=== PATIENT | female | born 1990 | race Caucasian/White ===

== ENCOUNTER → 2019-09-04 | Outpatient (CLI) | payer SELFPAY ==
[2019-09-04 11:23] LABS: EOSINOPHILS % (AUTO) 1 % (0-10); HEMATOCRIT 36 % (35-52); HEMOGLOBIN 12.1 G/DL (11.5-16.0); LYMPHOCYTES % (AUTO) 23 % (12-44); MEAN CORPUSCULAR HEMOGLOBIN 31 PG (25-34); MEAN CORPUSCULAR HGB CONC 34 G/DL (32-36); MEAN CORPUSCULAR VOLUME 93 FL (80-99); MEAN PLATELET VOLUME 9.8 FL (7.4-10.4); MONOCYTES % (AUTO) 10 % (0-12); NEUTROPHILS % (AUTO) 66 % (42-75); PLATELET COUNT 203 10^3/uL (130-400); RED CELL DISTRIBUTION WIDTH 12.7 % (10.0-14.5); WHITE BLOOD COUNT 8.2 10^3/uL (4.3-11.0)
[2019-09-04 11:24] LABS: BASOPHILS % (AUTO) 0 % (0-10); EOSINOPHILS # (AUTO) 0.1 10^3/uL (0.0-0.3); LYMPHOCYTES # (AUTO) 1.9 X 10^3 (1.0-4.0); MONOCYTES # (AUTO) 0.8 X 10^3 (0.0-1.0); NEUTROPHILS # (AUTO) 5.4 X 10^3 (1.8-7.8)
== END ==
LOC: LAB FS 10:17
PROVIDERS: ATTEND Family Medicine
DX: Z34.80 Encounter for supervision of other normal pregnancy, unspecified trimester (principal)
CPT/HCPCS: 36415; 80055; 82950; 86703; 87088

== ENCOUNTER → 2019-11-05 | Outpatient (CLI) | payer SELFPAY | LOC: LABNPT 15:51 | PROVIDERS: ATTEND Family Medicine | DX: Z34.90 Encounter for supervision of normal pregnancy, unspecified, unspecified trimester (principal) | CPT/HCPCS: 87081 ==

== ENCOUNTER 2019-11-15 13:22 | Inpatient (IN) | payer SELFPAY ==
[2019-11-15] VITALS (44 sets, daily range): BP systolic 123–166; BP diastolic 69–94
[~2019-11-15] VITALS: Ht 157.5 cm; Wt 64.0 kg
--- NOTE | 2019-11-15 13:13 | NUR ---
MEDHAT SOTOMAYOR presented to unit via ambulation from ED, accompanied by S.O., for INDUCTION. MEDHAT SOTOMAYOR weighed, gowned, voided, and to bed. EFHM and TOCO applied, VS taken. MEDHAT SOTOMAYOR oriented to bed controls, call light, TV, heat, and A/C controls.
[2019-11-15] MEDS ORDERED: D5 LR IV SOLUTION 1,000 ML IV SCH (14:21)
[2019-11-15] MEDS ORDERED: MINERAL OIL CONCENTRATE 99.9% 15 ML UDC TOP PRN (14:30)
--- NOTE | 2019-11-15 14:31 | NUR ---
Dr. Conte called and notified of pt arrival. Orders rec'd to check cervix and start pitocin. Dr. sarmiento unit is busy, and for pt safety, it might be a bit before induction process is started. Dr. oliver.
[2019-11-15 15:17] LABS: BASOPHILS % (AUTO) 0 % (0-10); EOSINOPHILS % (AUTO) 0 % (0-10); HEMATOCRIT 39 % (35-52); HEMOGLOBIN 13.5 G/DL (11.5-16.0); LYMPHOCYTES # (AUTO) 1.8 X 10^3 (1.0-4.0); LYMPHOCYTES % (AUTO) 14 % (12-44); MEAN CORPUSCULAR HEMOGLOBIN 31 PG (25-34); MEAN CORPUSCULAR HGB CONC 34 G/DL (32-36); MEAN CORPUSCULAR VOLUME 90 FL (80-99); MEAN PLATELET VOLUME 10.7 FL (7.4-10.4); MONOCYTES # (AUTO) 1.2 X 10^3 (0.0-1.0); MONOCYTES % (AUTO) 9 % (0-12); NEUTROPHILS # (AUTO) 10.1 X 10^3 (1.8-7.8); NEUTROPHILS % (AUTO) 77 % (42-75); PLATELET COUNT 117 10^3/uL (130-400); RED CELL DISTRIBUTION WIDTH 12.4 % (10.0-14.5); WHITE BLOOD COUNT 13.2 10^3/uL (4.3-11.0)
[2019-11-15] MEDS ORDERED: OXYTOCIN PRE-MIX DRIP 500 ML IV ONE (15:19)
[2019-11-15] MEDS ORDERED: OXYTOCIN PRE-MIX DRIP 500 ML IV SCH (15:27)
--- OUTSIDE RECORDS SUMMARY | 2019-11-15 15:39 | XMS REPORT | Continuity of Care Document ---
Author Organization Unknown Address Unknown Phone Unavailable Allergies There is no data. Medications There is no data. Problems Date Dx Coded Attending Type Code Diagnosis Diagnosed By 09/05/2019 RIKI SOTELO MD Ot Z34.80 ENCOUNTER FOR SUPRVSN OF NORMAL PREGNANC 11/07/2019 RIKI SOTELO MD Ot Z34.90 ENCNTR FOR SUPRVSN OF NORMAL , 11/13/2019 RIKI SOTELO MD Ot Z34.90 ENCNTR FOR SUPRVSN OF NORMAL , Procedures There is no data. Results Test Result Range Streptococcus agalactiae detection by or ganism specific culture - 11/05/19 15:52 QUANTITY OF GROWTH . NRG Streptococcus agalactiae detection by organism specifi c culture [id number] NRG Encounters ACCT No. Visit Date/Time Discharge Status Pt. Type Provider Facility Loc./Unit Complaint [id number] 04/27/2019 10:10:00 04/27/2019 23:59: 59 CLS Outpatient JEISON COREA [facility] [id number] 11/05/2019 15:51:00 020 23:59:59 CLS Outpatient RIKI SOTELO MD [facility] LABNPT [id number] 09/04/2019 10:17:00 020 23:59:59 CLS Outpatient RIKI SOTELO MD [facility] LAB FS SUPERVISION OF OTHER NO RMAL , ANTEPARTUM
--- NOTE | 2019-11-15 16:31 | NUR ---
called to check on pt's status. update given. no new orders received.
[2019-11-15] MEDS ORDERED: ONDANSETRON 4 MG/2 ML (SDV) Z0FRAN ONE (17:42)
[2019-11-15] MEDS ORDERED: ONDANSETRON 4 MG/2 ML (SDV) Z0FRAN IVP PRN (17:45)
[2019-11-15] MEDS ORDERED: PANTOPRAZOLE 40 MG (PROTONIX) VIAL IV ONE (17:45)
[2019-11-15] MEDS ORDERED: LACTATED RINGERS 1,000 ML IV ONE ×2 (18:59→20:03)
--- NOTE | 2019-11-15 19:00 | NUR ---
1 liter LR bolus infusing prior to epidural placement. pt requesting epidural placement for pain management
[2019-11-15] MEDS ORDERED: fentaNYL 2 mcg/ml BUPIVA 0.125 100 ML ONE (19:15)
--- NOTE | 2019-11-15 19:25 | History & Physical-OB ---
OB - Chief Complaint & HPI Date/Time Date of Admission: Date of Admission: Nov 15, 2019 at 13:22 Date seen by a Provider: Nov 15, 2019 Time Seen by a Provider: 18:00 Chief Complaint/History OB-Reason for Admission/Chief: advanced dilation Hx : 4 Hx Para: 3 Gestational Age in Weeks: 38 Gestational Age in Days: 0 Indication for induction: other (advamced do;atopm) Admission Nurse Assessment Rev: Yes Allergies and Home Medications Allergies Coded Allergies: No Known Drug Allergies (Unverified , 11/15/19) Patient Home Medication List Home Medication List Reviewed: Yes OB - History Hx of Present Ultrasounds: Normal mid trimester US Obstetrical Complications: None Medical Complications: None Patient Past Medical History previously healthy Social History/Family History Recent Infectious Disease Expo: No Alcohol Use: Denies Use Recreational Drug Use: No OB - Admission Exam Physical Exam Vitals: Vital Signs 11/15/19 11/15/19 11/15/19 14:00 17:30 18:00 Temp 36.8 Pulse 53 Resp 18 B/P (MAP) 143/83 (103) Pulse Ox 99 O2 Delivery Room Air HEENT: NCAT Heart: Rhythm Normal Lungs: Clear Abdomen: Gravid Extremities: Normal Reflexes: Normal Cervical Dilatation: 5cm Station: -3 Membranes: Intact Heart Rate: 130's Accelerations: Accelerations Present Decelerations: No Decelerations Short Term Variability: Present Manager Nursing Home Variability: Average (6-25) Contractions on Admission: < 5 Minutes Apart Labs Laboratory Tests Test 11/15/19 14:55 Range/Units White Blood Count 13.2 H 4.3-11.0 10^3/uL Red Blood Count 4.37 4.35-5.85 10^6/uL Hemoglobin 13.5 11.5-16.0 G/DL Hematocrit 39 35-52 % Mean Corpuscular Volume 90 80-99 FL Mean Corpuscular Hemoglobin 31 25-34 PG Mean Corpuscular Hemoglobin Concent 34 32-36 G/DL Red Cell Distribution Width 12.4 10.0-14.5 % Platelet Count 117 L 130-400 10^3/uL Mean Platelet Volume 10.7 H 7.4-10.4 FL Neutrophils (%) (Auto) 77 H 42-75 % Lymphocytes (%) (Auto) 14 12-44 % Monocytes (%) (Auto) 9 0-12 % Eosinophils (%) (Auto) 0 0-10 % Basophils (%) (Auto) 0 0-10 % Neutrophils # (Auto) 10.1 H 1.8-7.8 X 10^3 Lymphocytes # (Auto) 1.8 1.0-4.0 X 10^3 Monocytes # (Auto) 1.2 H 0.0-1.0 X 10^3 Eosinophils # (Auto) 0.0 0.0-0.3 10^3/uL Basophils # (Auto) 0.0 0.0-0.1 10^3/uL OB - Assessment/Plan/Diagnosis Assessment Assessment: active labor Admission Dx Normal labor at 38 0/7 wga. Admission Status: Inpatient Order (span 2 midnights) Reason for Inpatient Admission: Labor Plan Induction Method: AROM Other Plan AROM shows clear fluid. Epidural per patient request. GBS negative. Pitocin. RIKI SOTELO MD Nov 15, 2019 19:25
[2019-11-15] MEDS ORDERED: WITCH HAZEL(TUCKS) 40 EA JAR TOP PRN (19:30)
[2019-11-15] MEDS ORDERED: MEASLES,MUMPS,RUBELLA 1 EA INJ SQ ONE (19:30)
[2019-11-15] MEDS ORDERED: BENZOCAINE/MENTHOL (DERMOPLAST) 60 ML CAN TP PRN (19:30)
[2019-11-15] MEDS ORDERED: TETANUS,DIPTH,PERTUSS P/F (BOOSTRIX) 0.5 ML VIAL IM ONE (19:30)
[2019-11-15] MEDS ORDERED: BUPIVACAINE 0.25% 30 ML (SENSORCAINE) VIAL ONE (19:36)
[2019-11-15] MEDS ORDERED: fentaNYL INJECTION 100 MCG/2 ML AMP ONE (19:36)
[2019-11-15] MEDS ORDERED: fentaNYL 2 mcg/ml BUPIVA 0.125 100 ML IV SCH (20:03)
[2019-11-15] MEDS ORDERED: EPIDURAL (fentaNYL 2 MCG/ML BUPIVA 0.125%)100 ML BAG EPI SCH (20:15)
[2019-11-15] MEDS ORDERED: CATHETER FLUSH 10 ML SYR IV PRN (20:15)
[2019-11-15] MEDS ORDERED: NALOXONE 0.4 MG/ML 1 ML (NARCAN) VIAL IV PRN (20:15)
--- NOTE | 2019-11-15 20:20 | NUR ---
2024: Pt up in stirrups for repair. 2029: Repair complete. Pt. cleaned up and out of stirrups. Fundus firm and one under umbilicus. Minimal bleeding noted. No clots expressed. 2044: Fundus firm and one under umbilicus. Minimal bleeding noted. No clots expressed. 2099: Fundus firm and one under umbilicus. Minimal bleeding noted. No clots expressed. 2114: Pt. called out to desk. States that her stomach is hurting and that she has a very bad headache. Pt is laid back at this time and lights turned down. Fundus massaged. Fundus firm and one under umbilicus. Minimal bleeding noted. No clots expressed. 2129: Orders received from anesthesia. Fundus massaged. Fundus firm and one under umbilicus. Minimal bleeding noted. No clots expressed. 2144: Fundus massaged. Fundus firm and one under umbilicus. Minimal bleeding noted. No clots expressed.
--- NOTE | 2019-11-15 20:39 | OB Labor & Delivery Record ---
Vag Delivery Note Vag Delivery Note Date of Delivery: 11/15/19 Preoperative Diagnosis: Brandi Cain is a (28 /Para 4 / 3,Gestational Age (wks)38with [0 days] Postoperative Diagnosis: Same Surgeon: RIKI SOTELO Automobile Carpets Molder: [none] Anesthesia: [epidural] Delivery Type: [] Findings: [] Viable [male] , apgars [9/9] Lacerations: Intact placenta with 3 vessel cord. Loose true knot in the cord. Estimated Blood Loss: [200] ml Complications: None Condition: Stable Description of Procedure: The patient is a 28 year old female who presented [in labor]. She was admitted a nd informed consent was obtained. Her labor course was remarkable for [nothing] She progressed to complete dilatation and began to push. She was then set up for delivery. The infant's head was delivered atraumatically in the [OA] position. The shoulders and remainder of the infant's body were then delivered without difficulty. Upon delivery, the head was held below the level of the perineum and the mouth and nares were bulb suctioned. The cord was doubly clamped and cut after 60 seconds on maternal abdomen by father of the . An intact placenta with 3-vessel cord delivered via Neal and there was found to be minimal bleeding.~ Vigorous fundal massage was performed and the fundus was found to be firm. IV oxytocin was given. Examination of the vagina and perineum revealed a [2nd degree perineal] laceration repaired in the usual fashion with 3-0 vicryl suture. Following the repair, sponge, instrument and needle counts were correct. Mom and baby were both in stable condition in the labor suite. Vitals - Labs Vital Signs - I&O Vital Signs Date Time Temp Pulse Resp B/P (MAP) Pulse Ox O2 Delivery O2 Flow Rate FiO2 11/15/19 19:00 52 18 136/75 (95) Room Air 11/15/19 18:45 42 18 152/85 (107) Room Air 11/15/19 18:30 48 18 157/87 (110) Room Air 11/15/19 18:15 42 18 160/76 (104) Room Air 11/15/19 18:00 53 18 143/83 (103) Room Air 11/15/19 17:45 52 18 163/82 (109) Room Air 11/15/19 17:30 45 18 164/82 (109) 99 Room Air 11/15/19 17:15 45 18 164/82 (109) 99 Room Air 11/15/19 17:00 49 18 160/94 (116) Room Air 11/15/19 16:45 46 18 166/79 (108) Room Air 11/15/19 16:30 47 18 151/85 (107) Room Air 11/15/19 16:15 18 Room Air 11/15/19 16:00 47 18 160/78 (105) Room Air 11/15/19 15:45 44 18 142/79 (100) Room Air 11/15/19 15:30 46 18 139/74 (95) Room Air 11/15/19 14:00 36.8 54 18 97 Room Air Labs Laboratory Tests 11/15/19 14:55: White Blood Count 13.2H, Red Blood Count 4.37, Hemoglobin 13.5, Hematocrit 39, Mean Corpuscular Volume 90, Mean Corpuscular Hemoglobin 31, Mean Corpuscular He moglobin Concent 34, Red Cell Distribution Width 12.4, Platelet Count 117L, Mean Platelet Volume 10.7H, Neutrophils (%) (Auto) 77H, Lymphocytes (%) (Auto) 14, Monocytes (%) (Auto) 9, Eosinophils (%) (Auto) 0, Basophils (%) (Auto) 0, Neutrophils # (Auto) 10.1H, Lymphocytes # (Auto) 1.8, Monocytes # (Auto) 1.2H, Eosinophils # (Auto) 0.0, Basophils # (Auto) 0.0 RIKI SOTELO MD Nov 15, 2019 20:39
[2019-11-15] MEDS: OXYTOCIN PRE-MIX DRIP 500 ML IV SCH ×2 (21:06→21:21)
[2019-11-15] MEDS ORDERED: SUCRALFATE 1 GM (CARAFATE) TAB PO ONE (21:15)
[2019-11-15] MEDS: IBUPROFEN 600 MG (MOTRIN) TAB PO SCH (21:20)
[2019-11-15] MEDS ORDERED: SUCRALFATE 1 GM (CARAFATE) TAB ONE (21:27)
--- NOTE | 2019-11-15 21:29 | NUR ---
Anesthesia called about pt headache. Anesthesia states that it is too early to evaluate anything at this point and to treat symptoms. Leave pt flat as much as possible.
--- NOTE | 2019-11-15 21:30 | NUR ---
Epidural cath removed. Tip intact.
[2019-11-15] MEDS ORDERED: HYDROmorphone 2 MG/ML VIAL (DILAUDID) IV ONE (21:45)
[2019-11-15] MEDS ORDERED: CATHETER FLUSH 10 ML SYR IV SCH ×2 (22:00)
--- NOTE | 2019-11-15 22:10 | NUR ---
Pt. is resting comfortably. Remains alert and oriented. States that her pain in both her head and stomach are getting better.
--- NOTE | 2019-11-15 22:54 | NUR ---
Pt. is sleeping soundly at this time.
[2019-11-15] MEDS: DOCUSATE SODIUM 100 MG (COLACE) CAP PO SCH (23:14)
[2019-11-15] MEDS: ACETAMINOPHEN 500 MG TAB (TYLENOL) PO SCH (23:14)
--- NOTE | 2019-11-16 00:10 | NUR ---
Nurse at pt bedside to assist with getting pt up to restroom. Fundus massaged at this time. Fundus 1 under umbilicus. Slightly boggy, but firmed with massage. Baseball size clot expressed. Nurse continue to massage fundus until bleeding was minimal. Pt. states at this time that she emptied her bladder in the bed. Pericare provided for the pt. Pad and underwear put on. Pt. transferred to the bathroom, but unable to void after voiding in bed. Gown changed. Pt. to wheelchair and transferred to room at this time. Pt. tolerated getting up to the bathroom well.
[2019-11-16 03:21] VITALS: BP 108/66
[2019-11-16] MEDS: IBUPROFEN 600 MG (MOTRIN) TAB PO SCH ×4 (03:22→21:33)
--- NOTE | 2019-11-16 05:06 | NUR ---
Dr. Conte called and informed of pt bleeding status. Informed that pt has been soaking through a pad an hour and has been regularly expelling clots with fundal massage. Informed that fundus is firm and one under umbilicus. Informed that pads from the last three hours had been weighed and added up to 360mls of blood loss. ordered 800 of cytotec to be given rectally at this time.
[2019-11-16] MEDS ORDERED: MISOPROSTOL 200 MCG (CYTOTEC) TABLET PR ONE (05:15)
[2019-11-16 06:46] LABS: BASOPHILS % (AUTO) 0 % (0-10); EOSINOPHILS % (AUTO) 0 % (0-10); HEMATOCRIT 34 % (35-52); HEMOGLOBIN 11.9 G/DL (11.5-16.0); LYMPHOCYTES # (AUTO) 2.5 X 10^3 (1.0-4.0); LYMPHOCYTES % (AUTO) 17 % (12-44); MEAN CORPUSCULAR HEMOGLOBIN 31 PG (25-34); MEAN CORPUSCULAR HGB CONC 35 G/DL (32-36); MEAN CORPUSCULAR VOLUME 90 FL (80-99); MONOCYTES % (AUTO) 7 % (0-12); NEUTROPHILS # (AUTO) 10.6 X 10^3 (1.8-7.8); NEUTROPHILS % (AUTO) 75 % (42-75); PLATELET COUNT 61 10^3/uL (130-400); RED CELL DISTRIBUTION WIDTH 12.4 % (10.0-14.5); WHITE BLOOD COUNT 14.1 10^3/uL (4.3-11.0)
--- NOTE | 2019-11-16 07:46 | NUR ---
DR. SOTELO HERE TO SEE PT.
[2019-11-16] MEDS: SUCRALFATE 1 GM (CARAFATE) TAB PO SCH ×3 (07:48→17:21)
[2019-11-16 08:00] VITALS: BP 129/81
--- NOTE | 2019-11-16 08:00 | NUR ---
VSS. ASSESSMENT COMPLETED. ASSISTED UP TO THE BATHROOM. LARGE GUSH OF BLOOD ON PAD AND SMALLER AMOUNT IN TOILET. WEIGHTED PAD AT 80 MLS. PASSED A 3 CM CLOT IN TOILET. GOWN CHANGED AND LWPBPY1CM PT WITH PERICARE AND PAD/UNDERWEAR CHANGE. AMBULATES WITHOUT DIFFICULTY. DENIES DIZZINESS. SET UP SHOWER. BACK TO BED WITHOUT PROBLEMS. FF U/2. VAG FLOW LT/MOD RUBRA. SPOUSE AT BEDSIDE.
[2019-11-16 08:24] LABS: ALBUMIN 2.5 GM/DL (3.2-4.5)
[2019-11-16] MEDS: ACETAMINOPHEN 500 MG TAB (TYLENOL) PO SCH ×2 (08:24→16:40)
[2019-11-16] MEDS: DOCUSATE SODIUM 100 MG (COLACE) CAP PO SCH ×2 (08:24→21:33)
[2019-11-16 08:25] LABS: CHLORIDE 106 MMOL/L (98-107); POTASSIUM 4.4 MMOL/L (3.6-5.0); SODIUM 135 MMOL/L (135-145)
[2019-11-16 08:26] LABS: CALCIUM 7.6 MG/DL (8.5-10.1)
[2019-11-16 08:27] LABS: GLUCOSE 82 MG/DL (70-105); TOTAL PROTEIN 4.7 GM/DL (6.4-8.2)
[2019-11-16 08:28] LABS: CARBON DIOXIDE 23 MMOL/L (21-32)
[2019-11-16 08:29] LABS: BILIRUBIN,TOTAL 0.7 MG/DL (0.1-1.0)
[2019-11-16 08:30] LABS: ALKALINE PHOSPHATASE 97 U/L (40-136); PROTHROMBIN TIME PATIENT 13.8 SEC (12.2-14.7)
[2019-11-16 08:31] LABS: CREATININE SERUM 0.74 MG/DL (0.60-1.30); GFR ESTIMATED > 60
[2019-11-16 08:32] LABS: BUN/CREATININE RATIO 19
[2019-11-16 08:33] LABS: ALANINE AMINOTRANSFERASE 247 U/L (0-55)
--- NOTE | 2019-11-16 09:06 | NUR ---
PARENTS TO NURSERY TO SEE .
--- NOTE | 2019-11-16 10:00 | NUR ---
RETURNED TO ROOM FORM NURSERY.
--- NOTE | 2019-11-16 12:00 | NUR ---
GALLBLADDER SONO BEING PERFORMED AT BEDSIDE.
[2019-11-16 12:45] VITALS: BP 117/77
--- NOTE | 2019-11-16 12:45 | NUR ---
DECISION BY DR. FORBES TO TRANSFER INFANT.
--- NOTE | 2019-11-16 14:10 | NUR ---
INFANT TRANSFERRED TO [facility].
--- NOTE | 2019-11-16 14:15 | NUR ---
EATING STORK MEAL.
--- NOTE | 2019-11-16 14:30 | Anesthesia-Regional Post-Op ---
Regional Patient Condition Mental Status: Alert, Oriented x3 Circulation: Same as Pre-Op Headache: Absent Sensation: Full Recovery Motor Block: Absent Post Op Complications Complications None Follow Up Care/Instructions Patient Instructions None needed. Anesthesia/Patient Condition Patient is doing well, no complaints, stable vital signs, no apparent adverse anesthesia problems. AYLEEN GARZA DO Nov 16, 2019 14:30
--- NOTE | 2019-11-16 14:31 | Diagnostic Imaging Report ---
PROCEDURE: US Abdomen, limited. TECHNIQUE: Multiple realtime grayscale images were obtained over the abdomen in various projections. INDICATION: Elevated liver enzymes. The liver is normal in size at 16 cm. The portal vein is patent and shows normal direction of flow. No discrete liver mass is detected. Trace fluid is noted around the liver. Gallbladder wall is slightly thickened and there is some pericholecystic fluid but no definite gallstones or sludge are identified. No biliary duct dilatation is seen. The pancreas is unremarkable. Aorta is nonaneurysmal. IVC is patent. Right kidney does appear to be isoechoic to the liver, suspicious for medical renal disease. No calculi or hydronephrosis is seen. IMPRESSION: Trace right upper quadrant ascites. There is a gallbladder wall thickening which can be seen with ascites as well. No definite gallstones or or gallbladder sludge is identified. Questionable medical renal disease. No hydronephrosis is detected. Dictated by: Dictated on workstation # [id number]
--- NOTE | 2019-11-16 14:40 | NUR ---
SPOUSE LEFT TO GO TO [place] TO BE WITH INFANT.
--- NOTE | 2019-11-16 15:50 | NUR ---
DR. SOTELO CALLED TO CHECK ON PT. WILL REPEAT LABS IN THE A.M.
--- NOTE | 2019-11-16 15:57 | Progress Note ---
Subjective Subjective/Events-last exam Patient had increased bleeding overnight and recieved rectal cytotec. Her bleeding has slowed. Increased chest pain yesterday resolved with carafate. Infant in the nursery with PVC's and desaturations. Objective Exam Last Set of Vital Signs Vital Signs Date Time Temp Pulse Resp B/P (MAP) Pulse Ox O2 Delivery O2 Flow Rate FiO2 11/16/19 12:45 36.9 59 18 117/77 (90) 97 Room Air Capillary Refill : Less Than 3 Seconds I&O Intake and Output 11/16/19 00:00 Intake Total 2000 ml Balance 2000 ml Intake IV Total 2000 ml Daily Weight Change No General: Alert, Oriented X3 HEENT: Atraumatic Neck: Supple Lungs: Clear to Auscultation Heart: Regular Rate Abdomen: Normal Bowel Sounds, Other (fundus firm) Extremities: No Edema Neuro: Normal Gait, Normal Speech Psych/Mental Status: Mental Status NL Results/Procedures Lab Laboratory Tests 11/16/19 06:32: White Blood Count 14.1H, Red Blood Count 3.79L, Hemoglobin 11.9, Hematocrit 34L, Mean Corpuscular Volume 90, Mean Corpuscular Hemoglobin 31, Mean Corpuscular Hemoglobin Concent 35, Red Cell Distribution Width 12.4, Platelet Count 61L, Mean Platelet Volume 10.0, Neutrophils (%) (Auto) 75, Lymphocytes (%) (Auto) 17, Monocytes (%) (Auto) 7, Eosinophils (%) (Auto) 0, Basophils (%) (Auto) 0, Neutrophils # (Auto) 10.6H, Lymphocytes # (Auto) 2.5, Monocytes # (Auto) 1.0, Eosinophils # (Auto) 0.0, Basophils # (Auto) 0.0, Prothrombin Time 13.8, INR Co mment 1.0, Sodium Level 135, Potassium Level 4.4, Chloride Level 106, Carbon Dioxide Level 23, Anion Gap 6, Blood Urea Nitrogen 14, Creatinine 0.74, Estimat Glomerular Filtration Rate > 60, BUN/Creatinine Ratio 19, Glucose Level 82, Calcium Level 7.6L, Corrected Calcium 8.8, Total Bilirubin 0.7, Aspartate Amino Transf (AST/SGOT) 312H, Alanine Aminotransferase (ALT/SGPT) 247H, Alkaline Phosphatase 97, Total Protein 4.7L, Albumin 2.5L Assessment/Plan Assessment/Plan Admission Dx vaginal delivery at 38 weeks. Elevated liver enzymes and thrombocytopenia. Admission Status: Inpatient Order (span 2 midnights) (1) care following vaginal delivery Assessment & Plan: Improved bleeding with cytotec. Hemoglobin stable and bleeding slowed. (2) Elevated liver enzymes Assessment & Plan: Will get ultrasound of liver. Pain resolved with carafate. will continue QAC and QHS. Acute hepatitis panel pending. (3) Thrombocytopenia Assessment & Plan: Bleeding stable. Will recheck in AM. Clinical Quality Measures DVT/VTE Risk/Contraindication: Risk Factor Score Per Nursin RFS Level Per Nursing on Admit: 1=Low/No VTE PPX RIKI SOTELO MD Nov 16, 2019 15:57
--- NOTE | 2019-11-16 15:58 | Discharge Summary ---
Discharge Inst-[facility] Reconcile Patient Problems Problems Reviewed?: Yes Follow Up/Instructions Goal/Follow Up: [address] Conte Activity Activity: Activity as Tolerated Driving Instructions: You May Drive NO SMOKING: NO SMOKING Nothing Inside Vagina: No Douching, No Mitchell, No Tampons Diet Discharge Diet: No Restrictions, Avoid Fatty Foods Symptoms to Report to : Fever Over 101 Degrees F, Pain/Pressure in Chest, Cough Up/Vomit Blood, Vaginal Bleeding Increase, Vaginal Discharge RIKI Barney MD Nov 16, 2019 15:58
[2019-11-16 16:30] VITALS: BP 121/73
--- NOTE | 2019-11-16 16:30 | NUR ---
VSS. WAITING TO TALK TO S.O. REGARDING INFANT.
[2019-11-16] MEDS: PANTOPRAZOLE 40 MG (PROTONIX) TAB PO SCH (16:42)
--- NOTE | 2019-11-16 18:20 | NUR ---
ASSISTED TOO GET IN SHOWER. VAGINAL BLEEDING HAS BEEN LIGHT SINCE THIS A.M.
[2019-11-16 21:25] LABS: HEPATITIS C ANTIBODY C Non-Reactive (Non-Reactive)
[2019-11-16 21:33] VITALS: BP 158/89
[2019-11-16 22:05] VITALS: BP 138/80
[2019-11-17] MEDS: ACETAMINOPHEN 500 MG TAB (TYLENOL) PO SCH (00:57)
[2019-11-17] MEDS: IBUPROFEN 600 MG (MOTRIN) TAB PO SCH ×2 (03:41→09:04)
[2019-11-17 03:45] VITALS: BP 126/83
[2019-11-17 05:11] LABS: BASOPHILS % (AUTO) 0 % (0-10); EOSINOPHILS # (AUTO) 0.1 10^3/uL (0.0-0.3); EOSINOPHILS % (AUTO) 1 % (0-10); HEMATOCRIT 32 % (35-52); HEMOGLOBIN 10.9 G/DL (11.5-16.0); LYMPHOCYTES # (AUTO) 2.7 X 10^3 (1.0-4.0); LYMPHOCYTES % (AUTO) 26 % (12-44); MEAN CORPUSCULAR HEMOGLOBIN 31 PG (25-34); MEAN CORPUSCULAR HGB CONC 34 G/DL (32-36); MEAN CORPUSCULAR VOLUME 91 FL (80-99); MONOCYTES # (AUTO) 0.7 X 10^3 (0.0-1.0); MONOCYTES % (AUTO) 7 % (0-12); NEUTROPHILS # (AUTO) 6.5 X 10^3 (1.8-7.8); NEUTROPHILS % (AUTO) 65 % (42-75); PLATELET COUNT 63 10^3/uL (130-400); RED CELL DISTRIBUTION WIDTH 12.9 % (10.0-14.5); WHITE BLOOD COUNT 10.1 10^3/uL (4.3-11.0)
[2019-11-17 05:22] LABS: ALBUMIN 2.6 GM/DL (3.2-4.5); CHLORIDE 108 MMOL/L (98-107); POTASSIUM 4.3 MMOL/L (3.6-5.0); SODIUM 139 MMOL/L (135-145)
[2019-11-17 05:23] LABS: CALCIUM 8.1 MG/DL (8.5-10.1)
[2019-11-17 05:24] LABS: GLUCOSE 71 MG/DL (70-105)
[2019-11-17 05:25] LABS: TOTAL PROTEIN 5.1 GM/DL (6.4-8.2)
[2019-11-17 05:26] LABS: BILIRUBIN,TOTAL 0.4 MG/DL (0.1-1.0); CARBON DIOXIDE 24 MMOL/L (21-32)
[2019-11-17 05:28] LABS: ALKALINE PHOSPHATASE 83 U/L (40-136); CREATININE SERUM 0.69 MG/DL (0.60-1.30); GFR ESTIMATED > 60
[2019-11-17 05:29] LABS: BUN/CREATININE RATIO 17
[2019-11-17 05:31] LABS: ALANINE AMINOTRANSFERASE 164 U/L (0-55)
[2019-11-17] MEDS: SUCRALFATE 1 GM (CARAFATE) TAB PO SCH (06:53)
[2019-11-17 09:00] VITALS: BP 111/74
[2019-11-17] MEDS: DOCUSATE SODIUM 100 MG (COLACE) CAP PO SCH (09:03)
[2019-11-17] MEDS: PANTOPRAZOLE 40 MG (PROTONIX) TAB PO SCH (09:04)
[2019-11-17] MEDS ORDERED: IBUP-844 PO (09:51)
[2019-11-17] MEDS ORDERED: DCS100C PO (09:51)
[2019-11-17] MEDS ORDERED: ACET-93 PO (09:51)
--- NOTE | 2019-11-17 10:09 | Discharge Summary ---
Diagnosis/Chief Complaint Date of Admission Nov 15, 2019 at 13:22 Date of Discharge November 17, 2019 Discharge Date: Nov 17, 2019 Discharge Time: 10:00 Admission Diagnosis Admission Diagnosis Intrauterine at 38 weeks Discharge Diagnosis Intrauterine at 38 weeks--delivered 2. Elevated Liver Enzymes 3. Thrombocytopenia 4. Abdominal Ascites Reason Hospital Visit Onset of labor Discharge Summary Hospital Course Hospital Course Ms. Cain presented to the hospital secondary to the onset of contractions at 38 weeks. Her labor was augmented with Pitocin and AROM. She progressed to complete dilation and was delivered vaginally by Dr. Conte. The was transferred to a NICU. Ms. Cain experienced epigastric pain--an ultrasound and laboratory values were ordered. They demonstrated abdominal ascites, elevated liver enzymes. These values were repeated the next day and the labs were trending downward. Ms. Cain was without complaint. Consequently, we will discharge her to home today. Have her follow up in Dr. Conte's office for repeat lab and ultrasound next week. She will be discharged to home with instructions and prescriptions. Labs Laboratory Tests 11/15/19 14:55: White Blood Count 13.2H, Platelet Count 117L, Mean Platelet Volume 10.7H, Neutrophils (%) (Auto) 77H, Neutrophils # (Auto) 10.1H, Monocytes # (Auto) 1.2H 11/16/19 06:32: White Blood Count 14.1H, Platelet Count 61L, Neutrophils # (Auto) 10.6H, Red Blood Count 3.79L, Hematocrit 34L, Calcium Level 7.6L, Aspartate Amino Transf (AST/SGOT) 312H, Alanine Aminotransferase (ALT/SGPT) 247H, Total Protein 4.7L, Albumin 2.5L 11/17/19 04:59: Platelet Count 63L, Red Blood Count 3.52L, Hematocrit 32L, Calcium Level 8.1L, Aspartate Amino Transf (AST/SGOT) 96H, Alanine Aminotransferase (ALT/SGPT) 164H, Total Protein 5.1L, Albumin 2.6L, Hemoglobin 10.9L, Chloride Level 108H Procedures None. Discharge Physical Examination Allergies: Coded Allergies: No Known Drug Allergies (Unverified , 11/15/19) Vitals & I&Os Vital Signs Date Time Temp Pulse Resp B/P (MAP) Pulse Ox O2 Delivery O2 Flow Rate FiO2 11/17/19 03:45 36.6 68 16 126/83 (10) 97 Room Air General Appearance: Alert, Oriented X3, Cooperative HEENT: Atraumatic Respiratory: Clear to Auscultation, Normal Air Movement Cardiovascular: Regular Rate, No Murmurs Abdominal: Normal Bowel Sounds, Soft, No Tenderness Extremities: No Clubbing, No Cyanosis Skin: No Rashes, No Breakdown Neuro: Normal Gait, Normal Speech Psych/Mental Status: Mental Status NL Discharge Home Medications Reviewed and agree with Discharge Medication list on patient's Discharge Instruction sheet Instructions to Patient/Family Please see electronic discharge instructions given to patient. Clinical Quality Measures DVT/VTE Risk/Contraindication: Risk Factor Score Per Nursin RFS Level Per Nursing on Admit: 1=Low/No VTE PPX MARILIA JOHNSON DO Nov 17, 2019 10:09
--- NOTE | 2019-11-17 12:09 | NUR ---
Discharged to ER exit via wheelchair. Infant remains in NICU at [place]. remains their with son Chandana.
== END 2019-11-17 12:09 | disposition home or self-care (01) | DRG 806 ==
LOC: LDRP 13:22
PROVIDERS: ADMIT Family Medicine; ATTEND Family Medicine
PROC: 10E0XZZ Delivery of Products of Conception, External Approach (ICD-10-PCS; principal; 2019-11-15)
PROC: 0KQM0ZZ Repair Perineum Muscle, Open Approach (ICD-10-PCS; 2019-11-15)
DX: O70.1 Second degree perineal laceration during delivery (principal); R18.8 Other ascites; Z37.0 Single live birth; Z3A.38 38 weeks gestation of pregnancy; O69.2XX0 Labor and delivery complicated by other cord entanglement, with compression, not applicable or unspecified; O90.89 Other complications of the puerperium, not elsewhere classified; O72.3 Postpartum coagulation defects; R74.8 Abnormal levels of other serum enzymes
CPT/HCPCS: 36415; 76705; 80053; 80074; 85025; 85610; 86850; 86900; 86901

== ENCOUNTER → 2021-07-29 | Outpatient (CLI) | payer SELFPAY ==
[~2021-07-29] MED LIST: ACET-93 PO; DOCU-239 PO; IBUP-844 PO
[2021-07-29 10:55] LABS: HEMATOCRIT 34 % (35-52); HEMOGLOBIN 11.9 g/dL (11.5-16.0); MEAN CORPUSCULAR HEMOGLOBIN 32 pg (25-34); MEAN CORPUSCULAR HGB CONC 35 g/dL (32-36); MEAN CORPUSCULAR VOLUME 91 fL (80-99); MEAN PLATELET VOLUME 9.6 fL (9.0-12.2); PLATELET COUNT 200 10^3/uL (130-400); WHITE BLOOD COUNT 10.8 10^3/uL (4.3-11.0)
== END ==
LOC: LAB FS 10:30
PROVIDERS: ATTEND Family Medicine
DX: Z34.92 Encounter for supervision of normal pregnancy, unspecified, second trimester (principal); Z3A.24 24 weeks gestation of pregnancy
CPT/HCPCS: 36415; 85027; 86703; 86762; 86780; 86850; 86900; 86901; 87088; 87340

== ENCOUNTER 2021-11-17 04:20 | Inpatient (IN) | payer SELFPAY ==
[~2021-11-17] VITALS: Ht 160 cm; Wt 66.3 kg
[2021-11-17] VITALS (15 sets, daily range): BP systolic 101–132; BP diastolic 56–76
[2021-11-17 04:52] LABS: BILIRUBIN,URINE NEGATIVE (NEGATIVE); CLARITY,URINE CLEAR; COLOR,URINE YELLOW; GLUCOSE, URINE (UA) NEGATIVE (NEGATIVE); KETONES,URINE NEGATIVE (NEGATIVE); LEUKOCYTE ESTERASE ,URINE NEGATIVE (NEGATIVE); NITRITE,URINE NEGATIVE (NEGATIVE); PH,URINE 6.5 (5-9); PROTEIN,URINE NEGATIVE (NEGATIVE)
[2021-11-17 05:01] LABS: BACTERIA,URINE TRACE /HPF; SQUAMOUS EPITHELIAL CELL,UR 25-50 /HPF
[2021-11-17] MEDS ORDERED: D5 LR IV SOLUTION 1,000 ML IV SCH (08:00)
[2021-11-17 08:03] LABS: BASOPHILS # (AUTO) 0.1 10^3/uL (0.0-0.1); BASOPHILS % (AUTO) 0 % (0-10); EOSINOPHILS # (AUTO) 0.1 10^3/uL (0.0-0.3); EOSINOPHILS % (AUTO) 1 % (0-10); HEMATOCRIT 41 % (35-52); LYMPHOCYTES # (AUTO) 2.4 10^3/uL (1.0-4.0); LYMPHOCYTES % (AUTO) 19 % (12-44); MEAN CORPUSCULAR HEMOGLOBIN 32 pg (25-34); MEAN CORPUSCULAR HGB CONC 34 g/dL (32-36); MEAN CORPUSCULAR VOLUME 92 fL (80-99); MEAN PLATELET VOLUME 10.7 fL (9.0-12.2); MONOCYTES # (AUTO) 1.4 10^3/uL (0.0-1.0); MONOCYTES % (AUTO) 11 % (0-12); NEUTROPHILS # (AUTO) 8.8 10^3/uL (1.8-7.8); NEUTROPHILS % (AUTO) 68 % (42-75); PLATELET COUNT 180 10^3/uL (130-400); WHITE BLOOD COUNT 12.9 10^3/uL (4.3-11.0)
[2021-11-17] MEDS ORDERED: OXYTOCIN PRE-MIX DRIP 500 ML IV ONE (08:17)
[2021-11-17] MEDS ORDERED: LIDOCAINE 1% INJ 20 ML VIAL ONE (08:17)
[2021-11-17] MEDS ORDERED: OXYTOCIN PRE-MIX DRIP 500 ML IV SCH ×2 (08:30→11:30)
[2021-11-17] MEDS ORDERED: LIDOCAINE 1% INJ 20 ML VIAL IJ ONE (10:00)
[2021-11-17] MEDS ORDERED: WITCH HAZEL(TUCKS) 40 EA JAR TOP PRN (11:30)
[2021-11-17] MEDS ORDERED: IBUPROFEN 800 MG (MOTRIN) TAB PO ONE (11:30)
[2021-11-17] MEDS ORDERED: BENZOCAINE/MENTHOL (DERMOPLAST) 56 ML CAN TP PRN (11:30)
[2021-11-17] MEDS: IBUPROFEN 800 MG (MOTRIN) TAB PO SCH ×2 (11:32→18:21)
--- NOTE | 2021-11-17 13:12 | History & Physical ---
History and Physical Date Seen by Provider: Nov 17, 2021 Time Seen by Provider: 08:00 This patient is a 30-year-old 5 para [address] Wass[address]. Calix is unavailable and I am on-call. Patient presented at about 4 AM this morning with complaint of contractions. Her cervix was about 4 to 5 cm dilated. By 730 she now has progressed to 5 cm x 8 o'clock she was 8 cm. GBS culture was negative. Patient denies rupture membranes or bleeding. Patient has had no problems with this . Patient is feeling a strong urge to push Allergies are none Medications are vitamins Medical social and surgical history is are per the antepartum record of Dr. Wasserman HEENT exam is normal Neck is supple no lymphadenopathy no thyromegaly Abdomen is gravid soft nontender nondistended Extremity show no clubbing or cyanosis. There is no Homans' sign. Pelvic exam my arrival showed a cervix completely dilated vertex presentation membranes intact amniotomy was performed with release of clear fluid. Assessment and plan 40+ week gestation and active labor with delivery eminent 40 weeks gestation in active labor Allergies and Home Medications Allergies Coded Allergies: No Known Drug Allergies (Unverified , 11/15/19) Patient Home Medication List Home Medication List Reviewed: No No Active Prescriptions or Reported Meds DAVE FOOTE MD Nov 17, 2021 13:12
[2021-11-17] MEDS ORDERED: CATHETER FLUSH 10 ML SYR IV SCH ×2 (14:00)
[2021-11-17] MEDS ORDERED: oxyCODONE/APAP 5/325MG (PERCOCET 5) TABLET PO PRN (17:30)
[2021-11-17] MEDS: DOCUSATE SODIUM 100 MG (COLACE) CAP PO SCH (20:07)
[2021-11-18 00:13] VITALS: BP 101/58
[2021-11-18] MEDS: IBUPROFEN 800 MG (MOTRIN) TAB PO SCH ×2 (00:13→06:04)
--- NOTE | 2021-11-18 01:10 | OPERATIVE REPORT ---
DATE OF SERVICE: 11/17/2021 DELIVERY NOTE The patient delivered by term spontaneous vaginal delivery a viable male with Apgars of 8 and 9 at 1 and 5 minutes respectively, weight of 7 pounds and 13 ounces, blood gas of 7.18 and a time of 0839. The was bulb suctioned on delivery of the head and again on completion of delivery. Umbilical cord was doubly clamped, the father cut the cord, the baby was passed to mom's abdomen. Cord bloods were obtained. The placenta delivered spontaneously Villegas. It was normal with a 3-vessel cord. The cervix, rectum, vagina and perineum were examined and found intact, except for a first-degree perineal laceration extending through the posterior fourchette. This was repaired under local analgesia using 1% lidocaine with epinephrine, infiltrated into the defect and then closed with a running locked suture of 3-0 Vicryl Rapide in the usual manner to good hemostasis and good reapproximation. The patient tolerated the delivery and the repair well. Sponge and needle counts were correct on completion of delivery and the repair. Blood loss was around 200 mL. The patient remained in the LDR for recovery. The baby remained with the mom. Job ID: [id number] DocumentID: [id number] Dictated Date: 11/17/2021 15:54:10 Car Varnisher Date: 11/18/2021 01:10:27 Dictated By: DAVE FOOTE MD
[2021-11-18 04:33] VITALS: BP 99/53
--- NOTE | 2021-11-18 07:23 | Progress Note ---
Standard Progress Note Progress Notes/Assess & Plan Date Seen by a Provider: Nov 18, 2021 Time Seen by a Provider: 07:22 Progress/Assessment & Plan This patient is without complaint. She is ambulating, voiding, tolerating oral intake well and has good pain control. Vital Signs Date Time Temp Pulse Resp B/P (MAP) Pulse Ox O2 Delivery O2 Flow Rate FiO2 11/18/21 04:33 36.7 61 18 99/53 (68) 97 Room Air 11/18/21 00:13 36.6 65 18 101/58 (72) 96 Room Air 11/17/21 20:07 36.8 66 18 116/58 (77) 97 Room Air 11/17/21 16:28 36.6 54 18 110/69 (83) Room Air 11/17/21 11:30 57 123/76 (92) 11/17/21 11:15 71 122/68 (86) 11/17/21 11:00 53 106/62 (77) 11/17/21 10:50 86 18 119/61 (80) Room Air 11/17/21 09:55 36.2 61 18 113/72 (86) Room Air 11/17/21 09:41 61 18 108/69 (82) Room Air 11/17/21 09:32 36.1 61 18 103/68 (80) Room Air 11/17/21 09:10 72 18 111/58 (75) Room Air 11/17/21 08:55 69 18 112/56 (74) Room Air 11/17/21 08:40 36.2 63 18 132/69 (90) Room Air 11/17/21 08:15 36.5 71 18 115/70 (85) Room Air 11/17/21 07:40 36.6 58 18 101/58 (72) Room Air I & O 11/18/21 07:00 Intake Total 1500 ml Balance 1500 ml Vital Signs Date Time Temp Pulse Resp B/P (MAP) Pulse Ox O2 Delivery O2 Flow Rate FiO2 11/18/21 04:33 36.7 61 18 99/53 (68) 97 Room Air 11/18/21 00:13 36.6 65 18 101/58 (72) 96 Room Air 11/17/21 20:07 36.8 66 18 116/58 (77) 97 Room Air 11/17/21 16:28 36.6 54 18 110/69 (83) Room Air 11/17/21 11:30 57 123/76 (92) 11/17/21 11:15 71 122/68 (86) 11/17/21 11:00 53 106/62 (77) 11/17/21 10:50 86 18 119/61 (80) Room Air 11/17/21 09:55 36.2 61 18 113/72 (86) Room Air 11/17/21 09:41 61 18 108/69 (82) Room Air 11/17/21 09:32 36.1 61 18 103/68 (80) Room Air 11/17/21 09:10 72 18 111/58 (75) Room Air 11/17/21 08:55 69 18 112/56 (74) Room Air 11/17/21 08:40 36.2 63 18 132/69 (90) Room Air 11/17/21 08:15 36.5 71 18 115/70 (85) Room Air 11/17/21 07:40 36.6 58 18 101/58 (72) Room Air I & O 11/18/21 07:00 Intake Total 1500 ml Balance 1500 ml Vital signs are stable. Patient is afebrile. The abdomen is benign. Fundus is firm below the umbilicus and nontender. Extremities show no clubbing cyanosis. There is no Homans' sign. Some pretibial pitting edema that would be normal. Pelvic exam was deferred Assessment and plan day 1 doing well plan is for discharge home today or tomorrow as patient prefers Final Diagnosis 40-week spontaneous vaginal delivery DAVE FOOTE MD Nov 18, 2021 07:23
--- NOTE | 2021-11-18 07:48 | Discharge Inst-Surgical ---
Discharge Inst-Surgical Depart Medication/Instructions New, Converted or Re-Newed RX: Transmitted to Pharmacy Consults/Follow Up Orders & Referrals Follow Up Appt: Call to make follow up appt. for patient in [address] Conte. Activity Per routine post vaginal delivery instructions. Prescriptions for Percocet Motrin and Colace have been sent to patient's pharmacy Diet as tolerated Patient may shower or tub bathe as desired. Activity Activity as Tolerated: No Diet Discharge Diet: No Restrictions DAVE FOOTE MD Nov 18, 2021 07:48
--- NOTE | 2021-11-18 07:49 | Progress Note ---
Standard Progress Note Progress Notes/Assess & Plan Date Seen by a Provider: Nov 18, 2021 Time Seen by a Provider: 07:49 Progress/Assessment & Plan This patient is without complaint. She is ambulating, voiding, tolerating oral intake well and has good pain control. Vital Signs Date Time Temp Pulse Resp B/P (MAP) Pulse Ox O2 Delivery O2 Flow Rate FiO2 11/18/21 04:33 36.7 61 18 99/53 (68) 97 Room Air 11/18/21 00:13 36.6 65 18 101/58 (72) 96 Room Air 11/17/21 20:07 36.8 66 18 116/58 (77) 97 Room Air 11/17/21 16:28 36.6 54 18 110/69 (83) Room Air 11/17/21 11:30 57 123/76 (92) 11/17/21 11:15 71 122/68 (86) 11/17/21 11:00 53 106/62 (77) 11/17/21 10:50 86 18 119/61 (80) Room Air 11/17/21 09:55 36.2 61 18 113/72 (86) Room Air 11/17/21 09:41 61 18 108/69 (82) Room Air 11/17/21 09:32 36.1 61 18 103/68 (80) Room Air 11/17/21 09:10 72 18 111/58 (75) Room Air 11/17/21 08:55 69 18 112/56 (74) Room Air 11/17/21 08:40 36.2 63 18 132/69 (90) Room Air 11/17/21 08:15 36.5 71 18 115/70 (85) Room Air 11/17/21 07:40 36.6 58 18 101/58 (72) Room Air I & O 11/18/21 07:00 Intake Total 1500 ml Balance 1500 ml Vital Signs Date Time Temp Pulse Resp B/P (MAP) Pulse Ox O2 Delivery O2 Flow Rate FiO2 11/18/21 04:33 36.7 61 18 99/53 (68) 97 Room Air 11/18/21 00:13 36.6 65 18 101/58 (72) 96 Room Air 11/17/21 20:07 36.8 66 18 116/58 (77) 97 Room Air 11/17/21 16:28 36.6 54 18 110/69 (83) Room Air 11/17/21 11:30 57 123/76 (92) 11/17/21 11:15 71 122/68 (86) 11/17/21 11:00 53 106/62 (77) 11/17/21 10:50 86 18 119/61 (80) Room Air 11/17/21 09:55 36.2 61 18 113/72 (86) Room Air 11/17/21 09:41 61 18 108/69 (82) Room Air 11/17/21 09:32 36.1 61 18 103/68 (80) Room Air 11/17/21 09:10 72 18 111/58 (75) Room Air 11/17/21 08:55 69 18 112/56 (74) Room Air 11/17/21 08:40 36.2 63 18 132/69 (90) Room Air 11/17/21 08:15 36.5 71 18 115/70 (85) Room Air 11/17/21 07:40 36.6 58 18 101/58 (72) Room Air I & O 11/18/21 07:00 Intake Total 1500 ml Balance 1500 ml Vital signs are stable. Patient is afebrile. The abdomen is benign. Fundus is firm below the umbilicus and nontender. Extremities show no clubbing cyanosis. There is no Homans' sign. Some pretibial pitting edema that would be normal. Pelvic exam was deferred Assessment and plan day 1 doing well plan is for discharge home today or tomorrow as patient prefers DAVE FOOTE MD Nov 18, 2021 07:49
[2021-11-18 08:45] VITALS: BP 106/57
[2021-11-18] MEDS: DOCUSATE SODIUM 100 MG (COLACE) CAP PO SCH (08:46)
[2021-11-18 13:30] VITALS: BP 118/63
== END 2021-11-18 14:45 | disposition home or self-care (01) | DRG 807 ==
LOC: WSo 04:20 → LDRP 04:21 → WSo 07:54 → LDRP 11:41
PROVIDERS: ADMIT Obstetrics & Gynecology; ATTEND Obstetrics & Gynecology
PROC: 10E0XZZ Delivery of Products of Conception, External Approach (ICD-10-PCS; principal; 2021-11-17)
PROC: 0HQ9XZZ Repair Perineum Skin, External Approach (ICD-10-PCS; 2021-11-17)
DX: O48.0 Post-term pregnancy (principal); Z37.0 Single live birth; O70.0 First degree perineal laceration during delivery; Z3A.40 40 weeks gestation of pregnancy
CPT/HCPCS: 36415; 81000; 83033; 85025; 86850; 86900; 86901; 99212

== ENCOUNTER → 2022-05-26 | Outpatient (CLI) | payer SELFPAY ==
--- NOTE | 2022-05-26 12:37 | Diagnostic Imaging Report ---
INDICATION: Scoliosis, back pain. EXAMINATION: Supine entire spine series 05/26/2022. FINDINGS: The entire spine is not included. Within the visualized aspects of the thoracolumbar spine, there is a 16 degree levoconvex scoliosis measured from the superior endplate of T5 to the inferior endplate of L3. No vertebral body anomalies appreciated. No acute osseous abnormality. IMPRESSION: 1. 16 degree levoconvex scoliosis of the thoracolumbar spine. Dictated by: Dictated on workstation # [id number]
== END ==
LOC: RAD FS 10:42
PROVIDERS: ATTEND Family Medicine
DX: M41.85 Other forms of scoliosis, thoracolumbar region (principal)
CPT/HCPCS: 72082